=== PATIENT | female | born 1980 | race Caucasian/White ===

== ENCOUNTER → 2017-01-07 | Outpatient (CLI) | payer BC | LOC: COL.RAD 10:30 | DX: K21.9 Gastro-esophageal reflux disease without esophagitis (principal); R10.11 Right upper quadrant pain ==

== ENCOUNTER → 2018-12-08 | Outpatient (CLI) | payer BC | LOC: COL.RAD 09:45 | DX: R59.0 Localized enlarged lymph nodes (principal) ==

== ENCOUNTER → 2022-01-25 | Outpatient (CLI) | payer BC | LOC: MC.RAD 09:03 | DX: Z12.31 Encounter for screening mammogram for malignant neoplasm of breast (principal); N63.20 Unspecified lump in the left breast, unspecified quadrant ==

== ENCOUNTER → 2022-01-29 | Outpatient (CLI) | payer BC | LOC: MC.RAD 10:56 | DX: N60.02 Solitary cyst of left breast (principal) ==

== ENCOUNTER → 2022-08-02 | Outpatient (CLI) | payer BC | LOC: MC.RAD 09:53 | DX: N64.89 Other specified disorders of breast (principal) ==

== ENCOUNTER → 2023-02-26 | Outpatient (CLI) | payer BC | LOC: MC.RAD 07:45 | DX: Z12.31 Encounter for screening mammogram for malignant neoplasm of breast (principal); N60.02 Solitary cyst of left breast ==

== ENCOUNTER → 2024-03-03 | Outpatient (CLI) | payer BC | LOC: MC.RAD 08:30 | DX: Z12.31 Encounter for screening mammogram for malignant neoplasm of breast (principal) ==

== ENCOUNTER → 2024-07-30 | Outpatient (CLI) | payer BC | LOC: MC.RAD 06:56 | DX: N60.02 Solitary cyst of left breast (principal) ==

== ENCOUNTER → 2024-08-11 | Outpatient (CLI) | payer BC | LOC: MC.RAD 09:57 | DX: N60.02 Solitary cyst of left breast (principal) ==